=== PATIENT | male | born 1950 | race Caucasian/White ===

== ENCOUNTER → 2017-07-24 | Outpatient (CLI) | payer MEDICARE, BC ==
[2017-07-24 07:09] LABS: Blood Urea Nitrogen 24 mg/dL (9-20); Non-African American GFR(MDRD) >60 (>60 ml/min/1.73 sqM)
--- NOTE | 2017-07-24 10:14 | MR ---
EXAMINATION TYPE: MR lumbar spine wo con DATE OF EXAM: 07/24/2017 COMPARISON: NONE HISTORY: 67-year-old male with back pain and lumbago TECHNIQUE: Multiplanar, multisequence images of the lumbar spine were acquired. FINDINGS: Vertebral body heights are preserved. No suspicious bone marrow replacement. Scattered fatty matrix hemangiomas are present, largest toward s the left within T12 but smaller within L1 and L5. Conus medullaris is normal. There is a transitional lumbosacral segment which will be denoted as a sacralized L5. RF intervertebr al discs are degenerated, desiccated, variably narrowed, and diffusely bulging. There is ligamentum flavum thickening and hypertrophic facet arthropathy. Changes resulting grade 1 anterolisthesis at L4-L5. At T11-T12, no canal or foraminal stenosis. At T12-L1, no canal or foraminal stenosis. At L1-L2, there is a diffuse disc bulge with a superimposed left paracentral disc extrusion which javan ws superior migration of disc material along with mild facet degenerative change. Changes result in m oderate left and mild right neuroforaminal stenosis without significant spinal canal stenosis. At L2/L3, mild diffuse disc bulge with facet arthropathy and some prominent dorsal epidural fat. Whil e there is mild impression on the thecal sac, there is no significant spinal canal stenosis. Changes result in [id number] left and mid minimal inferior right neural foraminal stenosis. At L3-L4, there is diffuse disc bulge and hypertrophic facet arthropathy. Changes result in moderate right greater than left neural foraminal stenosis. Disc material may abut both traversing L4 nerve ro ots. No significant spinal canal stenosis. At L4-L5, diffuse disc bulge with grade 1 anterolisthesis and marked hypertrophic facet arthropathy. Changes result in moderate to severe right and moderate left neuroforaminal stenosis. A small anterio r annular fissure is present. No spinal canal stenosis. At L5-S1, no spinal canal or foraminal stenosis. Degenerative changes at the right SI joint. Possible large right adrenal mass measuring 5.9 cm. Likely a 2.9 cm right renal cyst and possible 2.0 cm hemorrhagic left renal cyst. Fusiform dilatation of the infrarenal abdominal aorta at 2.4 cm. The re is ectasia of the upper abdominal aorta 2.6 cm. IMPRESSION: 1. Recommend further CT or MRI evaluation of what appears to be a large 5.9 cm right adrenal mass. Ad renal mass protocol can be utilized. 2. A 2.0 cm lesion in the left kidney shows dark T2 signal probably representing a hemorrhagic cyst. 3. Transitional lumbosacral segment with a sacralized L5. 4. Moderate to advanced multilevel degenerative disc disease. Corresponding hypertrophic facet arthro murphy and ligamentum flavum thickening with a degenerative grade 1 anterolisthesis at L4-L5. 5. The changes slightly attenuates the thecal sac at a few levels but do not cause significant spinal canal stenosis. 6. Diffuse bulging disc at L1-L2 along with a superimposed left paracentral disc extrusion with super ior migration. Moderate left and mild right neuroforaminal stenosis. 7. At L3-L4, there is moderate right greater than left neuroforaminal stenosis and disc material poss ibly abutting both traversing L4 nerve roots. 8. At L4-L5, there is the small posterior annular fissure with moderate to severe right and moderate left neuroforaminal stenosis.
--- NOTE | 2017-07-24 10:39 | MR ---
EXAMINATION TYPE: MR brain wo/w con DATE OF EXAM: 07/24/2017 COMPARISON: Outside MRI 05/21/2017 HISTORY: 67-year-old male memory difficulties TECHNIQUE: Multiplanar, multisequence images of the brain and brainstem were acquired before and aft er administration of 11 mL IV Gadavist. Diffusion weighted imaging is performed. FINDINGS: No evidence for acute infarction, mass effect, midline shift, herniation, effacement of basal cister ns, or extra-axial fluid collection. The ventricles and sulci are age-appropriate. Major intracranial flow voids are intact. Redemonstrated focal ovoid lesion in the anterior left subinsular region. Previously, this measured 1 .8 x 1.1 cm. Currently, this measures 1.8 x 1.2 cm, not significantly changed. There remains a thick peripheral hemosiderin rim and internal heterogeneous T2 hyperintense signal. A n internal 4 mm nodular bright T1 focus is also unchanged and may enhance. There may be a second smal l 4 mm nodular focus of enhancement along the posterior margin of the lesion. T2/FLAIR weighted sequence shows moderate scattered burden of bright signal change in the subcortical , deep, and periventricular region of both cerebral hemispheres. Hypoenhancing to nonenhancing 4 mm focus within the pituitary gland is also noted. Otherwise, midlin e structures demonstrate normal morphology. The craniocervical junction is normal. Dural venous sinuses are patent. Otherwise, no abnormal intracranial enhancement seen. Mild mucosal thickening throughout the ethmoid air cells and along the floors of the maxillary sinuse s with a 1.1 cm mucosal retention cyst along the floor of the right maxillary sinus. Globes are intac t. IMPRESSION: 1. A 1.8 cm ovoid lesion in the anterior left subinsular region shows a thick hemosiderin rim. 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 There are either a couple 4 mm areas of internal nodular enhancemen t or small intralesional aneurysms. A 6 month follow-up can be considered. 2. Moderate scattered burden of T2 bright white matter change likely relating to chronic small vessel ischemic disease. 3. A 4 mm lesion in the pituitary gland could represent a small cyst or pituitary microadenoma. 4. Mild chronic paranasal sinus disease.
== END | disposition home or self-care (01) ==
LOC: RADMRIMAIN 06:32 → EDSEX 06:32
PROVIDERS: ATTEND Nurse Practitioner Acute Care
DX: M51.26 Other intervertebral disc displacement, lumbar region (principal); M51.36 Other intervertebral disc degeneration, lumbar region; M99.73 Connective tissue and disc stenosis of intervertebral foramina of lumbar region; M24.28 Disorder of ligament, vertebrae; M53.86 Other specified dorsopathies, lumbar region; R90.82 White matter disease, unspecified; R41.3 Other amnesia
CPT/HCPCS: 82565; 84520; 70553; 72148; 36415; A9581